=== PATIENT | male | born 1995 | race Caucasian/White ===

== ENCOUNTER 2016-09-07 12:57 | Emergency (ER) | payer OTHER ==
[~2016-09-07] VITALS: Ht 185.4 cm; Wt 76.6 kg
[~2016-09-07 12:57] MED LIST: FLUOXETINE HCL20 MG PO; ZOLPIDEM TARTRAT5 MG PO
[2016-09-07 14:58] LABS: EOSINOPHIL (%) 1.4 % (0-5); EOSINOPHIL COUNT 0.1 K/uL (0-0.3); HEMATOCRIT 45.7 % (38.0-50.0); IMMATURE GRANULOCYTE (%) 0.6 % (0.0-0.7); IMMATURE GRANULOCYTE COUNT 0.1 K/uL; INSTRUMENT ABS NEUTROPHIL CT 5.7 K/uL; LYMPHOCYTE COUNT 2.1 K/uL (1.0-2.8); MCH 33.1 PG (29.0-34.0); MCHC 35.9 G/DL (30.0-36.0); MCV 92.1 FL (86-99); MEAN PLAT.VOLUME 11.1 uM^3 (9.0-12.4); MONOCYTE (%) 10.8 % (3-12); NEUTROPHIL (%) 63.4 % (45-76); NEUTROPHIL COUNT 5.7 K/uL (1.8-6.4); PLATELET COUNT 160 K/uL (156-360); RBC DIS.WIDTH-CV 11.9 % (11.8-14.6); RBC DIS.WIDTH-SD 39.8 % (39-53); RED BLOOD COUNT 4.96 M/uL (4.00-5.50); WHITE BLOOD COUNT 9.1 K/uL (4.1-10.2)
[2016-09-07 15:09] LABS: CHLORIDE 103 mEq/L (99-109); POTASSIUM 4.3 mEq/L (3.7-5.4); SODIUM 139 mEq/L (136-147)
[2016-09-07 15:12] LABS: GLUCOSE 86 mg/dL (70-99)
[2016-09-07 15:13] LABS: ANION GAP 10 MEQ/L (2-14); TOTAL BILIRUBIN 1.1 mg/dL (0.0-1.0)
[2016-09-07 15:14] LABS: SERUM ETHYL ALCOHOL < 10 mg/dL
[2016-09-07 15:15] LABS: ALKALINE PHOSPHATASE 15 IU/L (3-129); GFR ESTIMATE (CALCULATED) > 59 mL/min/
[2016-09-07 15:16] LABS: UREA NITROGEN (BUN) 16 mg/dL (9-23)
[2016-09-07 15:17] LABS: DIRECT BILIRUBIN 0.4 mg/dL (0.0-0.3)
[2016-09-07 15:31] LABS: ADD MIUA? YES; BILIRUBIN NEGATIVE; BLOOD NEGATIVE; COLOR YELLOW ((YELLOW)); GLUCOSE (STRIP) NEGATIVE; KETONES NEGATIVE; LEUKOCYTES NEGATIVE; NITRITE NEGATIVE; PROTEIN (STRIP) NEGATIVE; SPECIFIC GRAVITY 1.019 (1.000-1.030); UROBILINOGEN 0.2 MG/DL (0.2-1.0)
[2016-09-07 15:45] LABS: AMPHETAMINE PRESUMPTIVE POSITIVE (500 ng/mL); BARBITURATES NEGATIVE (200 ng/mL); BENZODIAZEPINES NEGATIVE (150 ng/mL); COCAINE PRESUMPTIVE POSITIVE (150 ng/mL); INTERNAL CONTROLS VALID? YES; METHADONE NEGATIVE (200 ng/mL); METHAMPHETAMINE NEGATIVE (500 ng/mL); OPIATES (MORPHINE) NEGATIVE (100 ng/mL); OXYCODONE NEGATIVE (100 ng/mL); PHENCYCLIDINE NEGATIVE (25 ng/mL); PROPOXYPHENE NEGATIVE (300 ng/mL); THC CANNABINOIDS PRESUMPTIVE POSITIVE (50 ng/mL); TRICYCLIC ANTIDEPRESSANTS NEGATIVE (300 ng/mL)
[2016-09-07 15:46] LABS: ADD MEDTOX COMMENT Y
[2016-09-07 15:51] LABS: BACTERIA RARE /HPF; EPITHELIAL CELLS NONE SEEN /HPF; MUCUS TRACE /LPF; RED BLOOD CELLS 0-5 /HPF (0-5); WHITE BLOOD CELLS 0-5 /HPF (0-5)
[2016-09-07 16:21] LABS: AMPHETAMINES QUANT VALUE 0 NG/ML
[2016-09-07 16:58] VITALS: BP 132/83
== END 2016-09-07 17:02 | disposition home or self-care (01) ==
LOC: EME 12:57
PROVIDERS: Emergency Medicine
DX: F41.9 Anxiety disorder, unspecified (principal); F14.10 Cocaine abuse, uncomplicated; F19.10 Other psychoactive substance abuse, uncomplicated; F60.1 Schizoid personality disorder; F22 Delusional disorders; Z87.442 Personal history of urinary calculi
CPT/HCPCS: 71020; 80048; 80076; 81003; 84999; 85025; 87491; 87591; 90839; 99281; 99284; G0480